=== PATIENT | female | born 1965 | race Two or more races ===

== ENCOUNTER → 2023-01-24 | Outpatient (CLI) | payer MEDICAID ==
[~2023-01-24] VITALS: Ht 152.4 cm; Wt 88.9 kg
[~2023-01-24] MED LIST: ADENOSINE 75 MG in GIVE UN-DILUTED 0 ML IV ONE; ADENOSINE 90 MG/30 ML INJ IV ONE
== END | disposition home or self-care (01) ==
LOC: Rad HDHVI 13:43
PROVIDERS: ATTEND Internal Medicine Cardiovascular Disease
DX: I10 Essential (primary) hypertension (principal); E11.9 Type 2 diabetes mellitus without complications; E78.5 Hyperlipidemia, unspecified; Z82.49 Family history of ischemic heart disease and other diseases of the circulatory system
CPT/HCPCS: 78452; 93005; 96374; 96375; A9500; J0153

== ENCOUNTER → 2023-01-25 | Outpatient (CLI) | payer MEDICAID | END | disposition home or self-care (01) | LOC: Rad HDHVI 14:38 | PROVIDERS: ATTEND Internal Medicine Cardiovascular Disease | DX: M79.604 Pain in right leg (principal); M79.605 Pain in left leg | CPT/HCPCS: 93970 ==

== ENCOUNTER → 2023-01-31 | Outpatient (CLI) | payer MEDICAID | END | disposition home or self-care (01) | LOC: Rad HDHVI 09:38 | PROVIDERS: ATTEND Internal Medicine Cardiovascular Disease | DX: I08.3 Combined rheumatic disorders of mitral, aortic and tricuspid valves (principal); I10 Essential (primary) hypertension | CPT/HCPCS: 93306 ==

== ENCOUNTER → 2023-03-22 | Outpatient (CLI) | payer MEDICAID ==
[~2023-03-22] MED LIST changes: -ADENOSINE 75 MG in GIVE UN-DILUTED 0 ML IV ONE; -ADENOSINE 90 MG/30 ML INJ IV ONE; +APIX5TAB PO; +ATOR40TA52 PO; +CETI10TA2 PO; +CHOL20007 PO; +FURO20TA3 PO; +LISI2.5T47 PO; +METF-370 PO; +METO-158 PO
[2023-03-22 08:28] VITALS: BP 138/90
[2023-03-22 08:48] VITALS: BP 129/86
== END | disposition home or self-care (01) ==
LOC: Rad HDHVI 08:10
PROVIDERS: ATTEND Internal Medicine Cardiovascular Disease
DX: Z01.818 Encounter for other preprocedural examination (principal); I48.0 Paroxysmal atrial fibrillation; R94.31 Abnormal electrocardiogram [ECG] [EKG]; I50.23 Acute on chronic systolic (congestive) heart failure; E11.9 Type 2 diabetes mellitus without complications; I34.0 Nonrheumatic mitral (valve) insufficiency; I42.0 Dilated cardiomyopathy
CPT/HCPCS: 71046; 93005; G0463

== ENCOUNTER 2023-03-23 08:43 | Day surgery (SDC) | payer MEDICAID ==
[2023-03-22 11:27] LABS: Basophils # (auto) 0 10 ^3/uL (0-0.2); Basophils % (auto) 0.7 % (0.0-2.0); Eosinophils # (auto) 0.1 10 ^3/uL (0-0.8); Eosinophils % (auto) 2.2 % (0.0-7.0); Hematocrit 39.6 % (36.0-46.0); Hemoglobin 13.2 g/dL (12.2-16.2); Lymphocytes # (auto) 1.9 10 ^3/uL (0.4-5.4); Lymphocytes % (auto) 29.5 % (10.0-50.0); Mean Corpuscular Hgb Conc. 33.3 g/dL (32.0-36.0); Monocytes # (auto) 0.5 10 ^3/uL (0-1.3); Neutrophils # (auto) 3.9 10 ^3/uL (1.6-8.6); Neutrophils % (auto) 59.6 % (37.0-80.0); Nucleated Red Blood Cells % 0.2 %; Red Blood Cells 4.55 10^6/uL (4.0-5.20); Red Cell Distribution Width 14.7 % (11.8-14.3); White Blood Cell 6.6 10^3/uL (4.4-10.8)
[2023-03-22 11:41] LABS: INR 1.06 (0.9-1.15); Partial Thromboplastin Time 24.5 sec (24.6-33.4)
[2023-03-22 12:04] LABS: BUN/Creatinine Ratio 18.5 (10.0-20.0); Calcium 9.4 mg/dL (8.5-10.1); Potassium 4.2 mmol/L (3.5-5.1)
[~2023-03-23] VITALS: Ht 152.4 cm; Wt 88.5 kg
[2023-03-23] VITALS (7 sets, daily range): BP systolic 127–151; BP diastolic 79–97
[~2023-03-23 08:43] MED LIST changes: -FURO20TA3 PO
[2023-03-23] MEDS ORDERED: fentaNYL CITRATE 100 MCG/2 ML VL IV ONE (09:30)
[2023-03-23] MEDS ORDERED: MIDAZOLAM HCL 2MG/2ML 2ml VIAL (1mg/ml) IV ONE (09:30)
[2023-03-23] MEDS ORDERED: LIDOCAINE 2%HCL (LOCAL ANESTH.) INJ 20ML MDV ONE (10:50)
[2023-03-23] MEDS ORDERED: IODIXANOL 320MG/ML 100ML BTL IV ONE (10:50)
[2023-03-23] MEDS ORDERED: SODIUM CHL 0.9% 0 ML ONE (10:57)
[2023-03-23] MEDS ORDERED: ANGIOMAX 250 MG VIAL IV ONE (10:57)
[2023-03-23] MEDS ORDERED: MIDAZOLAM HCL 2MG/2ML 2ml VIAL (1mg/ml) ONE (11:04)
== END 2023-03-23 14:12 | disposition home or self-care (01) ==
LOC: CATH 08:43
PROVIDERS: ATTEND Internal Medicine Cardiovascular Disease
DX: I34.0 Nonrheumatic mitral (valve) insufficiency (principal); I50.1 Left ventricular failure, unspecified; I48.91 Unspecified atrial fibrillation; E11.9 Type 2 diabetes mellitus without complications; Z79.84 Long term (current) use of oral hypoglycemic drugs
CPT/HCPCS: 36415; 80048; 85025; 85610; 85730; 93312; 93458; C1894; J1644; J2250; J3010; Q9967; 99152; 99153

== ENCOUNTER 2024-02-21 15:39 | Emergency (ER) | payer MEDICAID ==
[~2024-02-21] VITALS: Ht 154.9 cm; Wt 68.0 kg
[2024-02-21] MEDS ORDERED: MECLIZINE HCL 25 MG TAB PO ONE (16:15)
[2024-02-21 17:34] LABS: Basophils # (auto) 0.1 10 ^3/uL (0-0.2); Basophils % (auto) 0.6 % (0.0-2.0); Eosinophils # (auto) 0 10 ^3/uL (0-0.8); Eosinophils % (auto) 0.1 % (0.0-7.0); Hematocrit 33.5 % (36.0-46.0); Hemoglobin 11.3 g/dL (12.2-16.2); Lymphocytes % (auto) 11.8 % (10.0-50.0); Mean Corpuscular Hemoglobin 31.9 pg (28.0-32.0); Mean Corpuscular Hgb Conc. 33.6 g/dL (32.0-36.0); Mean Corpuscular Volume 94.9 fL (80.0-100.0); Monocytes # (auto) 0.4 10 ^3/uL (0-1.3); Monocytes % (auto) 5.3 % (0.0-12.0); Neutrophils # (auto) 6.8 10 ^3/uL (1.6-8.6); Neutrophils % (auto) 82.2 % (37.0-80.0); Nucleated Red Blood Cells % 0.1 %; Red Blood Cells 3.53 10^6/uL (4.0-5.20); Red Cell Distribution Width 17.9 % (11.8-14.3); White Blood Cell 8.3 10^3/uL (4.4-10.8)
[2024-02-21 17:51] LABS: Alanine Aminotransferase 25 U/L (7-40); Albumin 3.9 g/dL (3.2-4.8); Alkaline Phosphatase 78 U/L (46-116); Anion Gap 21 (5-15); Aspartate Aminotransferase 36 U/L (13-40); BUN/Creatinine Ratio 18.5 (10.0-20.0); Bilirubin, Total 0.7 mg/dL (0.2-1.0); Blood Urea Nitrogen 24 mg/dL (9-23); Calcium 8.8 mg/dL (8.7-10.4); Carbon Dioxide 27 mmol/L (20-30); Chloride 90 mmol/L (98-107); Glucose 85 mg/dL (74-106); Potassium 3.1 mmol/L (3.5-5.1); Sodium 138 mmol/L (136-145); Total Protein 7.3 g/dL (5.7-8.2)
[2024-02-21 18:23] LABS: Lactic Acid w/Reflex 8.7 mmol/L (0.4-2.0)
[2024-02-21] MEDS ORDERED: SODIUM CHLORIDE 0.9% 1,000 ML IV ONE (19:00)
[2024-02-21 19:15] VITALS: BP 133/58; PULSE 68; RESP 18; TEMP 98.9; O2SAT 100
[2024-02-21] MEDS: METOCLOPRAMIDE HCL 5MG/ml INJ 2ml VIAL IV ONE (20:20)
[2024-02-21] MEDS: IOHEXOL 350 MG/ML 100ML IJ ONE (20:20)
[2024-02-21] MEDS: cefTRIAXone 1GM/50ML D5W 50 ML IV ONE (20:21)
[2024-02-21] MEDS: PIPERACILLIN-TAZOB 3.375GM 100 ML IV ONE (20:21)
== END 2024-02-21 22:21 | disposition left against medical advice (07) ==
LOC: ER 15:39
DX: A41.9 Sepsis, unspecified organism (principal); R42 Dizziness and giddiness; I10 Essential (primary) hypertension; R06.02 Shortness of breath
CPT/HCPCS: 36415; 70450; 71045; 80053; 82010; 82962; 83605; 83880; 84484; 85025; 85379; 87040; 87077; 87186; 93005; 96365; 96368; 96375; 99285; J0696; J2543; J2765; Q9967